=== PATIENT | female | born 1985 | race Caucasian/White ===

== ENCOUNTER 2021-04-24 14:17 | Emergency (ER) | payer MEDICAID, SELFPAY ==
--- NOTE | ~2021-04-24 | CT_ITS ---
EXAMINATION: CT CERVICAL SPINE WITHOUT CONTRAST CLINICAL INFORMATION: Neck pain radiating to right upper extremity. COMPARISON: None TECHNIQUE: Axial 3 mm thin and reformatted 2 mm thin sagittal and coronal images of cervical spine were obtained without contrast. This CT examination was performed using dose optimization techniques as appropriate, variously including the following: *Automated exposure control *Adjustment of mA and/or kV according to patient size (this includes techniques or standardized protocols for targeted exams where dose is matched to indication/reason for exam; i.e. extremities or head) *Use of iterative reconstruction technique DLP: 385 mGy-cm FINDINGS: There is reversal of cervical lordosis. The vertebral heights, alignment and disc heights are normal. No visible acute fracture, dislocation or subluxation seen. No lytic or sclerotic process seen. The craniovertebral junction and the C1-C2 alignment is normal. There is no evidence of disc bulge herniation or spinal stenosis at any of the disc levels. There is mild narrowing of right neural foramina at C4-C5 disc level. Rest of neural foramina are widely patent. The airway is widely patent. The lung apices are clear. Visualized thyroid gland, submandibular and parotid glands are symmetrical and normal. No abnormal neck lymphadenopathy or mass seen. CT/CT cervical spine wo con IMPRESSION: Reversal of cervical lordosis likely secondary to spasm. No visible acute fracture, dislocation or subluxation seen. There is mild narrowing of right C4-C5 neural foramina.
[2021-04-24 14:32] VITALS: BP 122/88; PULSE 92; RESP 20; TEMP 36.7; O2SAT 98; BMI 22.8
--- NOTE | 2021-04-24 15:32 | ECG_ITS ---
Test Reason : BACK PAIN Blood Pressure : / mmHG Vent. Rate : 077 BPM Atrial Rate : 077 BPM P-R Int : 108 ms QRS Dur : 070 ms QT Int : 388 ms P-R-T Axes : -16 052 027 degrees QTc Int : 439 ms Sinus rhythm with short [place] Otherwise normal ECG When compared with ECG of 18-JUL-2017 15:48, ST no longer depressed in Anterior leads Referred By: Ashley Owusu Electronically Signed By:DANITA ANTONIO MD
[2021-04-24] MEDS: Ketorolac Tromethamine 15 MG/ML VIAL IM ×2 (16:16→16:17)
[2021-04-24] MEDS: Cyclobenzaprine HCl 5 MG TABLET PO (16:16)
[2021-04-24] MEDS: Acetaminophen 325 MG TABLET 650 MG PO (16:16)
--- NOTE | 2021-04-24 16:25 | ED.BACK ---
HPI - Back Pain/Injury General Chief Complaint: Back Pain/Injury Stated Complaint: BACK PAIN Time Seen by Provider: 04/24/21 15:24 Source: patient Mode of arrival: ambulatory History of Present Illness HPI Narrative: 35-year-old female with no significant past medical history presenting to the ED complaining right upper back/neck pain radiating down right upper extremity x2 weeks worsening over the past couple days. Was instructed by chiropractor to come to ED for further eval. Admits to similar symptoms in the past however use to resolve on their own. Denies known history of trauma, fall, injury/heavy lifting. Reports associated paresthesias in fingertips. Denies CP/SOB, weakness, urinary incontinence/retention, fever MD elicited complaint: back pain Related Data Previous Rx's Medication Instructions Recorded acetaminophen [Tylenol Extra 500 mg PO Q6H PRN #20 tab 04/24/21 Strength] cyclobenzaprine 5 mg PO Q8H PRN 5 Days #14 tab 04/24/21 lidocaine [Lidoderm] 1 patch TOPICAL DAILY PRN #30 ea 04/24/21 MDD remove after 12 hours naproxen 500 mg PO BID PRN 10 Days #20 tab 04/24/21 tramadol 50 mg PO Q8H PRN #9 tab 04/24/21 Allergies Allergy/AdvReac Type Severity Reaction Status Date / Time No Known Allergies Allergy Mild NOT Verified 04/24/21 14:32 APPLICABLE Review of Systems Review of Systems: Constitutional: No Fever, No Chills Eyes: No Eye Pain, No Vision Changes Cardiovascular: No Chest Pain, No SOB Gastrointestinal: No Nausea, No Vomiting Genitourinary: No Urinary Incontinence/retention, No Urgency, No Flank Pain Musculoskeletal: + joint pain, No Myalgias, No Joint Swelling Skin: No Skin Lesions, No rash Neuro: No Weakness, No Numbness, + Paresthesias Yes all other systems are reviewed and are negative Neurologic: Denies Sensory deficit (Neuro) PMFSH Past Medical History Attestation statement: The following information was validated with the patient. Social History Social History Advance Directives: No Advance Directives Information Provided: No Patient : No Physical Exam Vital Signs: Vital Signs: Last Vital Signs Temp 98.0 F 04/24/21 14:32 Pulse 92 04/24/21 14:32 Resp 20 04/24/21 14:32 BP 122/88 04/24/21 14:32 Pulse Ox 98 04/24/21 14:32 Body Mass Index 22.8 Const: General: cooperative, healthy appearing and no acute distress Orientation/consciousness: patient oriented x3 Limitations: no limitations HENMT: Head: Yes normal to inspection and Yes atraumatic Ears: hearing grossly normal bilaterally General nose exam: Normal external nose present Face and sinus: Yes normal facial exam Eyes: General: appearance normal, both eyes and all related structures EOM: EOMs intact bilaterally Neck: Other: No midline cervical spinous tenderness/step-off or deformity. + right-sided paraspinal/right-sided trapezius muscle tenderness to palpation Neck: Yes normal visual inspection Resp: Effort & Inspection: normal respiratory effort and no respiratory distress Cardio: Rate: regular rate Peripheral pulses: radial pulses present GI: Inspection: Yes normal to inspection Back/Spine/Pelvis: Other: No midline thoracic/lumbar spinous tenderness. + right-sided thoracic MSK tenderness to palpation Skin: Rashes: no rashes Wounds: no wounds Neuro: Other: Strength intact throughout. Sensation intact to light touch, no saddle anesthesia General: patient oriented x3, tone normal and moves all extremities Gait exam (Neuro): Normal gait present Motor exam (neuro): 5/5 motor strength present throughout and Normal motor muscle tone present throughout Sensory Exam: No Sensory deficit (Neuro) Extrem: General: Yes normal to inspection Course Course Course Narrative: CT cervical spine wo con IMPRESSION: Reversal of cervical lordosis likely secondary to spasm. No visible acute fracture, dislocation or subluxation seen. There is mild narrowing of right C4-C5 neural foramina. >> discussed with patient. She was given a copy of CT results to follow-up with PCP, discussed with patient she likely needs an MRI in the future, worrisome signs and symptoms and strict return precautions discussed, she verbalized understanding feel safe for discharge home MDM - Back Pain/Injury MDM Narrative Medical decision making narrative: 35-year-old female with no significant past medical history presenting to the ED complaining right upper back/neck pain radiating down right upper extremity x2 weeks worsening over the past couple days. On exam vital signs stable, NAD/nontoxic, no midline spinous tenderness throughout, physical exam as above. No red flag symptoms, no saddle anesthesia. Likely MSK pain. Low concern for cord compression. Symptoms atypical for ACS Plan: Cervical spine CT, EKG, symptomatic therapies Medical Records Attestation: I reviewed the patient's medical records. Lab Data Attestation: I reviewed the patient's lab results. ECG Data Attestation: I personally reviewed and interpreted this ECG as follows: ECG interpretation date: 04/24/21 ECG interpretation time: 16:02 Interpretation: EKG normal sinus rhythm with short VT. Rate of 77. QTC 439 Discharge Plan Discharge Clinical Impression: Muscle spasms of neck Patient Disposition: Home, Self-Care Instructions: Muscle Spasm (ED) Additional Instructions: Your pain is likely musculoskeletal Flexeril is a muscle relaxer, take at night as it makes you drowsy, do not drive, drink alcohol, or operate machinery while taking it Naproxen as an anti-inflammatory / pain medication, take with food Lidoderm patches are numbing patches, apply to painful area In addition take Tylenol at home Tramadol as an opiate pain medication, take only when pain is severe for the next 3 days Make sure you follow-up with her primary care doctor, likely need an MRI outpatient If symptoms persist or worsen, pain becomes unbearable, you developed urinary retention or incontinence, or weakness return to the ED Prescriptions: New tramadol 50 mg tablet 50 mg PO Q8H PRN (Reason: pain, severe) Qty: 9 RF: 0 acetaminophen [Tylenol Extra Strength] 500 mg tablet 500 mg PO Q6H PRN (Reason: pain or fever) Qty: 20 RF: 0 lidocaine [Lidoderm] 5 % adhesive patch,medicated 1 patch topical DAILY MDD remove after 12 hours PRN (Reason: pain) Qty: 30 RF: 0 naproxen 500 mg tablet 500 mg PO BID PRN (Reason: pain) 10 Days Qty: 20 RF: 0 cyclobenzaprine 5 mg tablet 5 mg PO Q8H PRN (Reason: pain (scale score 7-10)) 5 Days Qty: 14 RF: 0 Referrals: Physician,Unknown [Primary Care Provider] - 2 days
== END 2021-04-24 16:45 | disposition home or self-care (01) ==
PROVIDERS: Emergency Provider Internal Medicine
DX: M62.838 Other muscle spasm (principal)
CPT/HCPCS: 72125; 93005; 96372; 99283; 99284; J1885